=== PATIENT | male | born 1990 | race Caucasian/White ===

== ENCOUNTER 2016-07-25 10:39 | Observation (INO) | payer OTHER ==
--- NOTE | 2016-07-25 10:48 | EDPHY ---
H & P Time Seen by Provider: 07/25/16 10:41 Constitutional: Initial Vital Signs Temperature (C) 36.6 C 07/25/16 10:39 Heart Rate 82 07/25/16 10:39 Respiratory Rate 18 07/25/16 10:39 Blood Pressure 134/87 H 07/25/16 10:39 O2 Sat (%) 97 07/25/16 10:39 O2 Delivery Mode Room Air Allergies/Adverse Reactions: No Known Allergies Allergy (Unverified 07/25/16 10:47) Home Medications: Medication Instructions Recorded NK [No Known Home Meds] 07/25/16 Medical Decision Making ED Course/Re-evaluation: CHIEF COMPLAINT: Left arm laceration HISTORY OF PRESENT ILLNESS: The patient is a 25 y/o male complaining of a laceration to his left forearm. He was weeding his garden next to a fence and pulled up his left arm quickly, slicing it on some part of the fence. He denies weakness or paresthesias in his wrist, hand, or fingers. No other trauma. He denies pertinent medical history. REVIEW OF SYSTEMS: A 10 point review of systems was performed and is negative with the exception of the elements mentioned in the history of present illness. PHYSICAL EXAM: HR, BP, O2 Sat, RR. Temp noted General Appearance: Alert, well hydrated, appropriate, and non-toxic appearing. Musculoskeletal: Large laceration extending into muscle belly on proximal left forearm. Otherwise normal active ROM of all extremities, atraumatic. Neurological: Alert, appropriate, and interactive. Normal neuro function of left arm, wrist, hand, and fingers. Skin: No rashes, good turgor, no nodules on palpation. Large, deep, 6cm fish mouth-shaped laceration to proximal forearm extending into muscle belly. Past medical history: Tetanus over 10 years ago. Past surgical history: Denies Family history: Noncontributory Social history: Single DIAGNOSTICS/PROCEDURES/CRITICAL CARE TIME: Study: Left forearm x-ray Indication: trauma, pain Results: left forearm x-ray was obtained. The results of the study are soft tissue laceration. The study was read by the radiologist, Dr. Winter. I viewed the images myself on the PACS system. DIFFERENTIAL DIAGNOSIS: The differential diagnosis for the patient's trauma included but was not limited to deep laceration involving muscle. MEDICAL DECISION MAKING: This is a healthy 25 y/o male that presents with a large accidental laceration to his left forearm secondary to pulling weeds and hitting a fence this morning. He is neurovascularly intact distal to the injury. Plan for wound care and suture repair of laceration. Tetanus vaccination administered. BIPIN Henao assessed clean wound and reports the laceration extends 1-2 inches. He will consult ortho before proceeding with sutures. 1120: BIPIN Henao consulted with Dr. Hawkins, orthopedic surgeon. He requests an x- ray and plans to take him to the OR this afternoon. Preoperative blood work and x-rays ordered. - Data Points Laboratory Results: Laboratory Results 07/25/16 11:15 07/25/16 11:15 07/25/16 07/25/16 07/25/16 11:30 11:15 11:15 WBC 4.34 10^3/uL 10^3/uL (3.80-9.50) RBC 5.42 10^6/uL 10^6/uL (4.40-6.38) Hgb 16.7 g/dL g/dL (13.7-17.5) Hct 48.3 % % (40.0-51.0) MCV 89.1 fL fL (81.5-99.8) MCH 30.8 pg pg (27.9-34.1) MCHC 34.6 g/dL g/dL (32.4-36.7) RDW 12.9 % % (11.5-15.2) Plt Count 190 10^3/uL 10^3/uL (150-400) MPV 9.3 fL fL (8.7-11.7) Neut % (Auto) Not Reported Lymph % (Auto) Not Reported Scott % (Auto) Not Reported Eos % (Auto) Not Reported Baso % (Auto) Not Reported Nucleat RBC Rel Count 0.0 % % (0.0-0.2) Absolute Neuts (auto) Not Reported Absolute Lymphs (auto) Not Reported Absolute Monos (auto) Not Reported Absolute Eos (auto) Not Reported Absolute Basos (auto) Not Reported Absolute Nucleated RBC 0.00 10^3/uL 10^3/uL (0-0.01) Immature Gran % Not Reported Seg Neutrophils % 24 % % Band Neutrophils % 12 % % Lymphocytes % 38 % % Monocytes % 23 % % Eosinophils % 1 % % Basophils % 2 % % Immature Gran # Not Reported Absolute Seg Neuts 1.04 10^/uL L 10^/uL (1.70-6.50) Absolute Band Neuts 0.52 10^3/uL 10^3/uL (0.00-0.70) Absolute Lymphocytes 1.65 10^3/uL 10^3/uL (1.00-3.00) Absolute Monocytes 1.00 10^3/uL H 10^3/uL (0.30-0.80) Absolute Eosinophils 0.04 10^3/uL 10^3/uL (0.03-0.40) Absolute Basophils 0.09 10^3/uL 10^3/uL (0.02-0.10) RBC/WBC/PLT Morphology NORMAL (NORMAL) Atypical Lymphocytes 1+ H Platelet Estimate ADEQUATE (ADEQ) Smear Review By Pending PT 14.5 SEC SEC (12.0-15.0) INR 1.14 (0.83-1.16) APTT 32.6 SEC SEC (23.0-38.0) Sodium 142 mEq/L mEq/L (134-144) Potassium 4.0 mEq/L mEq/L (3.5-5.2) Chloride 106 mEq/L mEq/L (97-110) Carbon Dioxide 24 mEq/l mEq/l (22-31) Anion Gap 12 mEq/L mEq/L (8-16) BUN 13 mg/dL mg/dL (7-23) Creatinine 0.9 mg/dL mg/dL (0.7-1.3) Estimated GFR > 60 Glucose 93 mg/dL mg/dL (70-100) Calcium 9.5 mg/dL mg/dL (8.5-10.4) Medications Given: Discontinued Medications Cephalexin HCl (Keflex) 500 mg PO EDNOW ONE PRN Reason: Protocol Stop: 07/25/16 11:08 Last Admin: 07/25/16 11:13 Dose: 500 mg Diphtheria/Tetanus/Acell Pertussis (Boostrix) 0.5 ml IM .ONCE ONE Stop: 07/25/16 11:31 Last Admin: 07/25/16 11:36 Dose: 0.5 ml Departure - Departure Disposition: [facility] Inpatient Acute Clinical Impression: Forearm laceration Qualifiers: Encounter type: initial encounter Laterality: left Qualified Code(s): S51.812A - Laceration without foreign body of left forearm, initial encounter Condition: Good Instructions: Care For Your Stitches (ED), Laceration (ED) Additional Instructions: 1. Return for suture removal in 10 days. 2. Return sooner if you develop signs of infection including severe pain, increasing redness or swelling, pus discharge from wound, fever, or other worsening of condition. Referrals: Nima Rivas, [Medical Doctor] - As per Instructions Report Scribed for: Tr Montoya Report Scribed by: Siomara Lawler Date of Report: 07/25/16 Time of Report: 10:55
[2016-07-25] MEDS ORDERED: TDAP ADULT 0.5 ML INJ (BOOSTRIX) IM ONE ×2 (11:03→11:30)
[2016-07-25] MEDS ORDERED: CEPHALEXIN 500 MG CAP PO ONE (11:07)
[2016-07-25] MEDS ORDERED: TETANUS, DIPHTHERIA TOX (7YR+) 0.5 ML INJ IM ONE (11:30)
[2016-07-25 11:45] LABS: ADD DIFF? YES; ADD MORPH? NO; ADD SCAN? NO; ATYPICAL LYMPHOCYTE FLAG 60 (0-99); FRAGMENT RBC FLAG 0 (0-99); HEMATOCRIT 48.3 % (40.0-51.0); HEMOGLOBIN 16.7 g/dL (13.7-17.5); LEFT SHIFT FLG 0 (0-99); LIPEMIA HEMOLYSIS FLAG 90 (0-99); MEAN CELL HEMOGLOBIN 30.8 pg (27.9-34.1); MEAN CELL HEMOGLOBIN CONCENTR. 34.6 g/dL (32.4-36.7); MEAN CELL VOLUME 89.1 fL (81.5-99.8); MEAN PLATELET VOLUME 9.3 fL (8.7-11.7); PLATELET CLUMPS FLAG 10 (0-99); PLATELET COUNT 190 10^3/uL (150-400); RED BLOOD CELL COUNT 5.42 10^6/uL (4.40-6.38); RED CELL DISTRIBUTION WIDTH 12.9 % (11.5-15.2)
[2016-07-25 11:56] VITALS: BP 113/79; PULSE 73; TEMP 98.4
[2016-07-25 12:06] VITALS: RESP 16; O2SAT 97
[2016-07-25 12:07] LABS: INR 1.14 (0.83-1.16); PROTIME(PATIENT) 14.5 SEC (12.0-15.0)
[2016-07-25 12:08] LABS: ANION GAP 12 mEq/L (8-16); CALCIUM 9.5 mg/dL (8.5-10.4); CARBON DIOXIDE 24 mEq/l (22-31); CHLORIDE 106 mEq/L (97-110); CREATININE 0.9 mg/dL (0.7-1.3); GLOMERULAR FILTRATION RATE > 60; GLUCOSE 93 mg/dL (70-100); SODIUM 142 mEq/L (134-144)
[2016-07-25 12:08] LABS: APTT 32.6 SEC (23.0-38.0)
[2016-07-25 12:18] LABS: PLATELET ESTIMATE ADEQUATE (ADEQ)
[2016-07-25] MEDS ORDERED: fentaNYL 100 MCG/2 ML INJ IVP PRN (12:38)
[2016-07-25] MEDS ORDERED: ONDANSETRON 4 MG/2 ML VIAL IVP PRN (12:39)
[2016-07-25] MEDS ORDERED: SKIN ADHESIVE (DERMABOND) 1 EACH TP ONE (15:13)
[2016-07-25] MEDS ORDERED: BACITRACIN 50,000 UNITS/10 ML SYR IRR ONE (15:13)
[2016-07-25] MEDS ORDERED: POLYMYXIN B SULFATE 500,000 UNIT/10 ML SYR IRR ONE (15:13)
[2016-07-25] MEDS ORDERED: BUPIVACAINE 0.5% 30 ML SDV ONE (15:13)
[2016-07-25] MEDS ORDERED: ceFAZolin 2 GM/DEXTROSE 100 ML IV ONE (16:00)
[2016-07-25] MEDS ORDERED: fentaNYL 100 MCG/2 ML INJ ONE (16:10)
[2016-07-25] MEDS ORDERED: PROPOFOL 200 MG/20 ML VIAL ONE (16:14)
[2016-07-25] MEDS ORDERED: MIDAZOLAM 2 MG/2 ML VIAL ONE (16:17)
[2016-07-25] MEDS ORDERED: BUPIVACAINE/EPI 0.5% 30 ML SDV ONE (16:54)
--- NOTE | 2016-07-25 17:09 | GCON ---
[f rep st] CONSULTATION DATE OF CONSULTATION: 07/25/2016 DIAGNOSIS: Left forearm laceration. HISTORY OF PRESENT ILLNESS: This is a young man who sustained a laceration to his forearm while gar dening and slashing this on some sharp kane. He also sustained some abrasions. He presented to [facility] emergency room. He was evaluated. I was contacted and the wound was deep and the emergency room physician did not feel that this could be closed and needed to be explored as it was dirty and conta minated. He complained of no other injuries. PAST MEDICAL HISTORY: Denies. PAST SURGICAL HISTORY: He has a history of a fracture on the other side. No surgery on the left si de. Otherwise noncontributory. MEDICATIONS: No medications. ALLERGIES: No allergies. SOCIAL HISTORY: Occasional alcohol. Nonsmoker. FAMILY HISTORY: Reviewed and noncontributory. REVIEW OF SYSTEMS: A 12-point review of systems is reviewed with the patient and is otherwise negat hope. PHYSICAL EXAM: GENERAL: He is alert, oriented, appropriate, in no acute distress. HEENT: His hea d is normocephalic and atraumatic. His eyes are equal and reactive. His face is atraumatic. His m outh shows moist mucous membranes. NECK: Supple. CHEST: Shows symmetric chest rise. His pulses are regular rate and rhythm. CARDIOVASCULAR: Regular rate and rhythm. ABDOMEN: Soft. EXTREMITIE S: His lower extremities and right upper extremity show no abnormality, full range of motion, 5/5 s trength and good pulses and sensation throughout. His left upper extremity is in a bandage because of a laceration in this area. He has good pulses distally in his radial and ulnar pulse. He has 5/ 5 strength in his EPL, FPL, abduction of the thumb, adduction of the thumb, circumduction of the abiel mb, finger flexion, extension, abduction. He has intact sensation medial, ulnar, and radial distrib utions. ASSESSMENT: Left forearm laceration. PLAN: I will take him to the operating room to clean this out and thoroughly irrigate it and debrid e it. He is given 2 g of Ancef. He will get more Ancef in the operating room and place him on Kefl ex afterward. I will repair any partial tendon laceration that is present. I not think he has any full thickness tendon lacerations based on his physical exam. /[id number]/MODL
--- NOTE | 2016-07-25 17:54 | GOP ---
[f rep st] OPERATIVE REPORT DATE OF OPERATION: 07/25/2016 SURGEON: Yimi Hawkins MD STUDIO ASSISTANT: None. ANESTHESIA: General. PREOPERATIVE DIAGNOSIS: Left forearm laceration. POSTOPERATIVE DIAGNOSIS: Left forearm laceration, left extensor digitorum communis muscle laceratio n, and left extensor carpi ulnaris muscle and fascial laceration. PROCEDURE PERFORMED: 1. Irrigation and debridement, left forearm wound, 6 x 2 x 3 cm deep, including muscle, tendon, and skin. 2. Repair if tendon and muscle of extensor digitorum communis and extensor carpi ulnaris. 3. Fascial closure. 4. Complex skin closure of laceration of left forearm with the above dimensions. FINDINGS: SPECIMENS: None. ESTIMATED BLOOD LOSS: 5 mL. INDICATIONS: This is a young male who presented to the emergency room with a laceration after a gar dening injury. This was bleeding significantly. It was initially evaluated and irrigated by the em ergency department. They felt that it required operative intervention given the exposed tendon and muscle, and depth to the wound. I agreed and elected to proceed with exploration of this and possib le repair of the above structures if needed. Informed consent was obtained. All questions were ans wered. DESCRIPTION OF PROCEDURE: He received 2 g of Ancef in the emergency room and another 2 g of Ancef a t this time. I did perform a time-out, verifying the patient, side, site, and location, with agreem ent of the team. The limb was prepped and draped in the usual fashion. I inflated the tourniquet, but did not exsang uinate it. I thoroughly irrigated and exposed the wound. This did go down to a depth of 3 cm and m ostly involved laceration of the muscle of the EDC and extensor carpi ulnaris. There was a small ar ea of tendon showing that this was in the myotendinous junction area of both of these tendons as wel l. I had clinically checked him before, and he denied any functional deficits in these muscles. I thought this represented partial tendon injuries and muscle injuries. 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 I used 2-0 PDS suture to repair these deep with. I then rep aired the fascia over this with the fingers and hand in extension. I then closed the wound with 2-0 PDS and 3-0 nylon. After it had been thoroughly irrigated with 3 L of normal saline, the wound was clean at the time that we left the surgery. I placed a sterile dressing and a splint on the wrist in extension to protect this repair. He will follow up with me postoperatively. He will be on Kefl ex and will be given pain medicine, and discharged home. IMPLANTS: None. COMPLICATIONS: None. DRAINS: None. CONDITION: Stable. /[id number]/MODL
== END 2016-07-25 18:37 | disposition home or self-care (01) ==
LOC: F1N 12:02
PROVIDERS: ADMIT Orthopaedic Surgery; ATTEND Orthopaedic Surgery
PROC: 0LQ60ZZ Repair Left Lower Arm and Wrist Tendon, Open Approach (ICD-10-PCS; principal; 2016-07-25 17:45)
PROC: 0KQB0ZZ Repair Left Lower Arm and Wrist Muscle, Open Approach (ICD-10-PCS; principal; 2016-07-25 17:45)
DX: S56.522A Laceration of other extensor muscle, fascia and tendon at forearm level, left arm, initial encounter (principal); Y93.H2 Activity, gardening and landscaping; Y92.017 Garden or yard in single-family (private) house as the place of occurrence of the external cause; W26.8XXA Contact with other sharp object(s), not elsewhere classified, initial encounter
CPT/HCPCS: J0690; J2250; J2405; J2704; J3010